=== PATIENT | female | born 1955 | race Hispanic/Latino ===

== ENCOUNTER → 2020-09-22 | Outpatient (CLI) | payer BC, MEDICARE | END | disposition home or self-care (01) | LOC: RAH 14:39 | PROVIDERS: ATTEND Internal Medicine | DX: M19.041 Primary osteoarthritis, right hand (principal); M19.042 Primary osteoarthritis, left hand; M85.89 Other specified disorders of bone density and structure, multiple sites; M46.1 Sacroiliitis, not elsewhere classified | CPT/HCPCS: 72202 ==

== ENCOUNTER 2024-06-18 10:02 | Day surgery (SDC) | payer OTHER ==
[2024-06-18] VITALS (11 sets, daily range): BP systolic 122–143; BP diastolic 56–75; PULSE 70–87; RESP 15–18; TEMP 97–97.2
[~2024-06-18] VITALS: Ht 157.5 cm; Wt 65.3 kg
[2024-06-18] MEDS: 0.9%NACL 1000ML 1,000 ML IV ONE (11:28)
[2024-06-18] MEDS ORDERED: FENOFIBRATE PO (11:34)
[2024-06-18] MEDS ORDERED: HYDR100T42 PO (11:34)
[2024-06-18] MEDS ORDERED: UPAD15TA PO (11:34)
[2024-06-18] MEDS ORDERED: DICL75TA5 PO (11:34)
[2024-06-18] MEDS ORDERED: ALEN70TA80 PO (11:34)
[2024-06-18] MEDS ORDERED: proPOFol 10 MG/ML 20ML VIAL IV ONE (12:43)
== END 2024-06-18 14:36 | disposition home or self-care (01) ==
LOC: DAH 10:02 → ENDO 10:02
PROVIDERS: ATTEND Internal Medicine Gastroenterology
DX: Z12.11 Encounter for screening for malignant neoplasm of colon (principal); R94.5 Abnormal results of liver function studies; E11.9 Type 2 diabetes mellitus without complications; I25.10 Atherosclerotic heart disease of native coronary artery without angina pectoris; M06.9 Rheumatoid arthritis, unspecified; E78.5 Hyperlipidemia, unspecified; Z88.1 Allergy status to other antibiotic agents; Z86.0100 Personal history of colon polyps, unspecified; Z90.710 Acquired absence of both cervix and uterus; Z90.49 Acquired absence of other specified parts of digestive tract; Z79.84 Long term (current) use of oral hypoglycemic drugs; Z79.899 Other long term (current) drug therapy
CPT/HCPCS: 82948 ×2; G0105; J7030; J2704; A4620; A4215 ×2; A4223; A4222; A4221; A4663; A4606; J3490

== ENCOUNTER → 2024-12-22 | Outpatient (CLI) | payer OTHER ==
[~2024-12-22] MED LIST: ALEN70TA80 PO; DICL75TA5 PO; FENOFIBRATE PO; HYDR100T42 PO; IOHEXOL-350 75 ML VIAL IV ONE; UPAD15TA PO
--- NOTE | 2024-12-22 15:58 | HMCIMG ---
EXAM: CT Abdomen and Pelvis with IV contrast CLINICAL HISTORY: LT UPPER QUADRANT PAIN TECHNIQUE: Axial computed tomography images of the abdomen and pelvis with intravenous contrast. CONTRAST: with intravenous contrast. COMPARISON: None provided. FINDINGS: LUNG BASES: The lung bases appear clear. No pleural effusions are seen. LIVER: Unremarkable. GALLBLADDER AND BILE DUCTS: The gallbladder appears within normal limits. No radioopaque gallstones are seen. No biliary ductal dilatation is evident. PANCREAS: Unremarkable. SPLEEN: Innumerable multiple subcentimeter hypoattenuating splenic lesions throughout. The spleen is otherwise normal in size and contour. ADRENAL GLANDS: Unremarkable. KIDNEYS, URETERS, AND BLADDER: The kidneys appear within normal limits. There is no hydronephrosis or hydroureter. No urinary calculi are seen. 1.2 cm simple right renal cysts. STOMACH AND BOWEL: Unremarkable appearance of the stomach and bowel. No evidence of bowel obstruction. No evidence suggesting enteritis or colitis. Mild colonic diverticulosis without CT evidence of acute diverticulitis APPENDIX: The appendix is not clearly visible. There are no secondary signs of acute appendicitis PERITONEUM: No free fluid. No free air. LYMPH NODES: No lymphadenopathy is evident. REPRODUCTIVE: Unremarkable as visualized. VASCULATURE: No evidence of abdominal aortic aneurysm. BONES: No aggressive appearing osseous lesion. No acute osseous pathology evident. IMPRESSION: 1. Multiple subcentimeter splenic lesions, etiology uncertain. Consider benign versus malignant causes. Recommend MRI abdomen with and without IV contrast for further evaluation. No lymphadenopathy. /[place]
== END | disposition home or self-care (01) ==
LOC: RAH 07:42
PROVIDERS: ATTEND Internal Medicine Gastroenterology
DX: N28.1 Cyst of kidney, acquired (principal); K57.30 Diverticulosis of large intestine without perforation or abscess without bleeding; D73.89 Other diseases of spleen; R10.12 Left upper quadrant pain
CPT/HCPCS: 74177; Q9967

== ENCOUNTER 2025-01-07 08:59 | Day surgery (SDC) | payer OTHER ==
[~2025-01-07] VITALS: Ht 152.4 cm; Wt 61.7 kg
[2025-01-07] VITALS (13 sets, daily range): BP systolic 108–139; BP diastolic 52–77; PULSE 72–82; RESP 15–18; TEMP 97–97.9
[~2025-01-07 08:59] MED LIST changes: +CALC-866 PO; -DICL75TA5 PO; +FOLI0.8C PO; +GABA-529 PO; +GLIM4TAB36 PO; -HYDR100T42 PO; +HYDR200T75 PO; -IOHEXOL-350 75 ML VIAL IV ONE; +LISI5TAB21 PO; +MILK175C5 PO; +SEMA2PEN SQ; +VITAMIN B12 PO
[2025-01-07] MEDS: 0.9%NACL 1000ML 1,000 ML IV ONE (11:36)
[2025-01-07] MEDS: DEXTROSE 50%-WATER 50 ML DISP.SYRIN IV ONE (13:22)
== END 2025-01-07 14:53 | disposition home or self-care (01) ==
LOC: DAH 08:59 → ENDO 08:59
PROVIDERS: ATTEND Internal Medicine Gastroenterology
DX: R10.12 Left upper quadrant pain (principal); K31.7 Polyp of stomach and duodenum; K29.70 Gastritis, unspecified, without bleeding; K31.89 Other diseases of stomach and duodenum; K44.9 Diaphragmatic hernia without obstruction or gangrene; I25.10 Atherosclerotic heart disease of native coronary artery without angina pectoris; E11.9 Type 2 diabetes mellitus without complications; Z90.710 Acquired absence of both cervix and uterus; R93.5 Abnormal findings on diagnostic imaging of other abdominal regions, including retroperitoneum; R94.5 Abnormal results of liver function studies; Z86.0100 Personal history of colon polyps, unspecified; K76.0 Fatty (change of) liver, not elsewhere classified; Z88.8 Allergy status to other drugs, medicaments and biological substances; M06.9 Rheumatoid arthritis, unspecified; Z98.890 Other specified postprocedural states; Z79.899 Other long term (current) drug therapy
CPT/HCPCS: 43251; 43239; 82948 ×3; J7030; J7070; J2704; A4620; A4649; A4215 ×2; A4223; A4222; A4221; A4663; A4606; J3490

== ENCOUNTER → 2025-01-13 | Outpatient (CLI) | payer OTHER ==
[~2025-01-13] VITALS: Ht 154.9 cm; Wt 61.7 kg
[~2025-01-13] MED LIST changes: +GADOTERATE MEGLUMINE 5 MMOL/10 ML VIAL IV ONE
--- NOTE | 2025-01-13 14:50 | HMCIMG ---
CLINICAL INFORMATION Further evaluation of splenic lesions COMPARISON None. TECHNIQUE Multiple planar multisequence MR imaging of the pelvis with and without contrast FINDINGS Visualized Hollow Viscera: Normal. Distal Ureters: Normal. Bladder: Normal. Changes of prior hysterectomy. Peritoneum: No ascites. Retroperitoneum: Normal. Lymph Nodes: No lymphadenopathy. Abdominal Wall: Normal. Vessels: Normal. Bones: Mild hip and sacroiliac joint osteoarthritis. Degenerative changes in the visualized lumbar spine. IMPRESSION No acute abnormality in the pelvis. See report for concurrently performed abdominal MRI for evaluation of the spleen. /[place]
--- NOTE | 2025-01-15 11:15 | HMCIMG ---
EXAM: MR Abdomen with and without Intravenous Contrast. CLINICAL HISTORY: Abnormal findings in spleen on prior imaging. TECHNIQUE: Multisequence, multiplanar magnetic resonance images of the abdomen with and without intravenous contrast. CONTRAST: Yes COMPARISON: CT abdomen and pelvis dated 12/22/24. CT angiogram dated 04/11/2011. FINDINGS: No pleural effusion. There is no focal abnormality appreciated within the liver, gallbladder, pancreas, adrenals, or left kidney. Multiple, rounded 1-2 cm size T1 isointense and T2 hyperintense lesions in the spleen with delayed peripheral enhancement and centripetal filling in some of the lesions, likely hemangiomas. 1.2 cm simple cortical cyst in the lower pole of right kidney. There is no obvious bowel wall thickening. No abdominal aortic aneurysm. No lymphadenopathy. No ascites. There is no acute osseous abnormality. IMPRESSIONS: No acute process in the abdomen. Multiple rounded 1-2 cm size T1 isointense and T2 hyperintense lesions in the spleen with delayed peripheral enhancement and centripetal filling in some of the lesions, likely hemangiomas. Recommended clinical correlation and follow-up contrast MRI after 3 months. No significant interval changes. /[place]
== END | disposition home or self-care (01) ==
LOC: RAH 07:50
PROVIDERS: ATTEND Internal Medicine Gastroenterology
DX: N28.1 Cyst of kidney, acquired (principal); M46.1 Sacroiliitis, not elsewhere classified; M16.9 Osteoarthritis of hip, unspecified; M47.816 Spondylosis without myelopathy or radiculopathy, lumbar region; R93.5 Abnormal findings on diagnostic imaging of other abdominal regions, including retroperitoneum; Z90.710 Acquired absence of both cervix and uterus
CPT/HCPCS: 74183; 72197; A9575